=== PATIENT | female | born 1965 | race Caucasian/White ===

== ENCOUNTER → 2024-05-31 | Outpatient (BNVA) | payer MEDICARE, MEDICAID, SELFPAY | END | disposition home or self-care (01) | PROVIDERS: PCP Nurse Practitioner Family; Referring Provider Nurse Practitioner Family; Visit Provider Nurse Practitioner Family | DX: M25.552 Pain in left hip (principal); Z23 Encounter for immunization; R73.03 Prediabetes; E55.9 Vitamin D deficiency, unspecified; E78.01 Familial hypercholesterolemia; E03.9 Hypothyroidism, unspecified | CPT/HCPCS: 90471; 90686; 99214 ==

== ENCOUNTER → 2024-06-10 | Outpatient (BNVA) | payer MEDICARE, MEDICAID, SELFPAY | END | disposition home or self-care (01) | PROVIDERS: PCP Nurse Practitioner Family; Referring Provider Nurse Practitioner Family; Visit Provider Nurse Practitioner Family | DX: R73.03 Prediabetes (principal); E78.01 Familial hypercholesterolemia; E03.9 Hypothyroidism, unspecified; Z71.2 Person consulting for explanation of examination or test findings | CPT/HCPCS: 99212; G0463 ==

== ENCOUNTER → 2024-06-20 | Outpatient (BNVA) | payer MEDICARE, MEDICAID, SELFPAY | END | disposition home or self-care (01) | PROVIDERS: PCP Nurse Practitioner Family; Referring Provider Nurse Practitioner Family; Visit Provider Nurse Practitioner Family | DX: Z12.31 Encounter for screening mammogram for malignant neoplasm of breast (principal) | CPT/HCPCS: 99212; G0463 ==

== ENCOUNTER → 2024-07-24 | Outpatient (CLI) | payer MEDICARE, MEDICAID, SELFPAY ==
--- NOTE | 2024-07-24 09:00 | XR_ITS ---
Examination: Screening digital mammography, bilateral Computer aided detection 3-D breast Tomosynthesis, bilateral Date and time of exam: July 24, 2024 0855 hours Compared to mammograms dating to December 20, 2010 Indication: Screening Technique: Nonmagnified MLO, CC views of the breasts to been obtained, reconstructed from 3-D Tomosynthesis images. R2 computer aided detection program utilized for evaluation of suspicious masses and/or abnormal calcifications. 3-D Tomosynthesis images obtained. Findings: Scattered areas of fibroglandular density. Benign calcifications. No interval suspicious masses Impression: BI-RADS category II: Benign Findings. Recommend 1 year follow-up mammogram.
== END | disposition home or self-care (01) ==
LOC: CDIM 08:45
PROVIDERS: Referring Provider Nurse Practitioner Family; Visit Provider Nurse Practitioner Family
DX: Z12.31 Encounter for screening mammogram for malignant neoplasm of breast (principal); R92.323 Mammographic fibroglandular density, bilateral breasts; R92.1 Mammographic calcification found on diagnostic imaging of breast
CPT/HCPCS: 77063; 77067

== ENCOUNTER 2024-07-30 08:03 | Outpatient (AMB) | payer MEDICARE, MEDICAID, SELFPAY ==
[2024-07-30 08:14] VITALS: BP 102/68; PULSE 68; RESP 19; TEMP 36.3; O2SAT 97; BMI 37.4
--- NOTE | 2024-07-30 08:14 | ORTHONT_ITS ---
Vital signs 07/30/24 08:14 Height 1.41 m Height Method Stated Weight 74.389 kg Weight Measurement Method Estimated by Patient BMI 37.4 BP 102/68 Blood Pressure Source Automatic Cuff Blood Pressure Location Left Upper Arm Position Sitting Respiration 19 Pulse 68 Pulse Source Monitor Temp 97.3 F Temp Source Temporal Artery Scan Pulse Oximetry (%) 97 Oxygen Delivery Method Room Air Med/Allergies Allergies & Medications Allergies No Known Allergies Allergy (Verified 07/30/24 08:15) Medication Reconciliation cholecalciferol (vitamin D3) 25 mcg (1,000 unit) capsule 25 mcg PO QDAY 04/09/24 [History Confirmed 07/30/24] ezetimibe 10 mg tablet 10 mg PO QDAY 90 days #90 tabs 06/10/24 [Rx Confirmed 07/30/24] levothyroxine 100 mcg tablet 100 mcg PO QDAY #90 tabs 06/10/24 [Rx Confirmed 07/30/24] rosuvastatin 10 mg tablet 10 mg PO QDAY #90 tabs 06/10/24 [Rx Confirmed 07/30/24] Exam Exam Patient is in no acute distress and is cooperative with the examination today. Breathing is nonlabored. In no respiratory distress. Patient has no paraspinal tenderness. Spinal deformity cannot be appreciated. The gait of the patient is nonantalgic Bilateral extremities were evaluated and demonstrates sensation intact to light touch. Palpable pedal pulses are present. No significant edema is present. Bilateral knees were examined and the patient has full strength and range of motion.. The right hip was examined. Patient was able to flex to 90 degrees, adduct to 30 degrees, abduct to 40 degrees, internally rotate to 20 degrees, and externally rotate to 20 degrees. Patient has a negative logroll. Stinchfield is negative. The patient is nontender diffusely to touch. The left hip was examined. Patient was able to flex to 90 degrees, adduct to 30 degrees, abduct to 40 degrees, internally rotate to 10 degrees, and externally rotate to 20 degrees. The stinchfield is positive as welll as the logroll. I reviewed her x-rays and CT scan. The CT scan demonstrates a shallow acetabulum with almost no lateral bone coverage. The femoral head has significant collapse as well. Assessment and Plan Problem List (1) Acquired dysplasia of left hip: Status: Acute Plan: Patient is a 59-year-old female with severe left hip dysplasia Down syndrome with left hip pain and degenerative joint disease. I discussed with her that some of her pain appears to be from the back as she is pointing to it as well as her hip. I personally we will try 1 hip injection to see how much of the pain is coming from the hip versus the fact. At some point, I hip replacement I think is a reasonable option. She is already established with a another orthopedic surgeon in the tertiary referral center. I would recommend that she see him. W I discussed with her that the surgery would require augments and may be a bigger procedure than what should be done at a [facility] later [facility]. Office Procedures GNS Level of Care Nursing/Assessment Patient Status: Initial/New Patient Nursing Assessment/Reassesment: Medication Reconciliation, Update PMH in EMR and Vital Signs Coordination of Care: Complex Care and Chronic Disease 1-5, Education Complex Pt/Fam, Consent,records obtained, informed consent, 1 Ins Authorization, Lab and Imaging orders, Results/Orders obtained and Staff clarify orders New Patient Charge New Patient Point Assignment: 1124 New Patient Point Charge: GAS MAKER Level 4 (7491-9012) MA Intake Visit Data Collection New Patient or Established: New Patient (never been to [facility]) Reason for Visit:: LEFT HIP PAIN Seen by Clinical Staff ONLY (RN/MA): No Felt 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 She also reports a lot of pain in the back. She is previously scheduled for a total hip replacement with the prior surgeon left this practice. She does have hip dysplasia and was told it was a complex reconstruction. The communication is primarily with her caregiver with her Pain Pain level (0-10): 8 Pain duration: CONSTANT Pain location: inside (medial), outside (lateral) and other (specify) (HIP) Pain quality: sharp Pain timing: night, increases with activity and stairs Associated signs & symptoms: weakness Ambulatory data Ambulatory device: other (specify) (WHEEL CHAIR) Treatments Improvement with previous injections: No Improvement with PT: No Improvement with NSAIDS: no Review of Systems Review of Systems: All systems negative unless otherwise noted in HPI.
== END 2024-07-30 08:40 | disposition home or self-care (01) ==
LOC: HODSRG 08:03
PROVIDERS: PCP Nurse Practitioner Family; Referring Provider Nurse Practitioner Family; Supervising Provider Orthopaedic Surgery Adult Reconstructive Orthopaedic Surgery; Visit Provider Orthopaedic Surgery Adult Reconstructive Orthopaedic Surgery
DX: M25.852 Other specified joint disorders, left hip (principal); Q90.9 Down syndrome, unspecified; M25.552 Pain in left hip; M19.90 Unspecified osteoarthritis, unspecified site
CPT/HCPCS: 99204; G0463

== ENCOUNTER → 2024-09-20 | Outpatient (BNVA) | payer MEDICARE, MEDICAID, SELFPAY | END | disposition home or self-care (01) | PROVIDERS: PCP Nurse Practitioner Family; Referring Provider Nurse Practitioner Family; Visit Provider Nurse Practitioner Family | DX: Z71.2 Person consulting for explanation of examination or test findings (principal); R73.03 Prediabetes; E78.01 Familial hypercholesterolemia; E03.9 Hypothyroidism, unspecified | CPT/HCPCS: 99212; G0463 ==

== ENCOUNTER → 2024-10-15 | Outpatient (BNVA) | payer MEDICARE, MEDICAID, SELFPAY | END | disposition home or self-care (01) | PROVIDERS: PCP Nurse Practitioner Family; Referring Provider Nurse Practitioner Family; Visit Provider Nurse Practitioner Family | DX: Z00.01 Encounter for general adult medical examination with abnormal findings (principal); E03.9 Hypothyroidism, unspecified; E66.9 Obesity, unspecified; Z68.35 Body mass index [BMI] 35.0-35.9, adult; R73.03 Prediabetes; E55.9 Vitamin D deficiency, unspecified; E78.5 Hyperlipidemia, unspecified; E78.01 Familial hypercholesterolemia | CPT/HCPCS: 93005; 99213 ==

== ENCOUNTER → 2024-10-25 | Outpatient (BNVA) | payer MEDICARE, MEDICAID, SELFPAY | END | disposition home or self-care (01) | PROVIDERS: PCP Nurse Practitioner Family; Referring Provider Nurse Practitioner Family; Visit Provider Nurse Practitioner Family | DX: Z76.89 Persons encountering health services in other specified circumstances (principal) ==

== ENCOUNTER → 2024-12-23 | Outpatient (CLI) | payer MEDICARE, MEDICAID, SELFPAY ==
--- NOTE | 2024-12-23 | XR_ITS ---
Examination: AP bilateral knees single view TECHNIQUE: AP standing bilateral knees single view Date and time: December 23, 2024 1202 hours INDICATIONS: Bilateral knee pain left knee swelling for months FINDINGS: Severe osteopenia Severe narrowing lateral joint spaces No fractures IMPRESSION: Severe narrowing lateral joint spaces
== END | disposition home or self-care (01) ==
PROVIDERS: PCP Nurse Practitioner Family; Referring Provider Nurse Practitioner Family; Visit Provider Nurse Practitioner Family
DX: M85.862 Other specified disorders of bone density and structure, left lower leg (principal); M85.861 Other specified disorders of bone density and structure, right lower leg
CPT/HCPCS: 73565

== ENCOUNTER → 2024-12-23 | Outpatient (BNVA) | payer MEDICARE, MEDICAID, SELFPAY | END | disposition home or self-care (01) | PROVIDERS: PCP Nurse Practitioner Family; Referring Provider Nurse Practitioner Family; Visit Provider Nurse Practitioner Family | DX: Z00.01 Encounter for general adult medical examination with abnormal findings (principal); E78.5 Hyperlipidemia, unspecified; E03.9 Hypothyroidism, unspecified; E66.9 Obesity, unspecified; E55.9 Vitamin D deficiency, unspecified; R73.03 Prediabetes | CPT/HCPCS: 99213 ==

== ENCOUNTER → 2025-01-01 | Outpatient (BNVA) | payer MEDICARE, MEDICAID, SELFPAY | END | disposition home or self-care (01) | PROVIDERS: PCP Nurse Practitioner Family; Referring Provider Nurse Practitioner Family; Visit Provider Nurse Practitioner Family | DX: M17.0 Bilateral primary osteoarthritis of knee (principal); Z12.11 Encounter for screening for malignant neoplasm of colon; Z23 Encounter for immunization; E03.9 Hypothyroidism, unspecified | CPT/HCPCS: 90471; 90677; 90715; 99215; G0009 ==

== ENCOUNTER → 2025-01-08 | Outpatient (BNVA) | payer MEDICARE, MEDICAID, SELFPAY | END | disposition home or self-care (01) | PROVIDERS: PCP Nurse Practitioner Family; Referring Provider Nurse Practitioner Family; Visit Provider Nurse Practitioner Family | DX: Z00.01 Encounter for general adult medical examination with abnormal findings (principal); E03.9 Hypothyroidism, unspecified; E66.9 Obesity, unspecified; R73.03 Prediabetes; E55.9 Vitamin D deficiency, unspecified; E78.01 Familial hypercholesterolemia; Z71.85 Encounter for immunization safety counseling; Q90.9 Down syndrome, unspecified; Z68.38 Body mass index [BMI] 38.0-38.9, adult | CPT/HCPCS: 93005; 99214 ==

== ENCOUNTER → 2025-01-22 | Outpatient (BNVA) | payer MEDICARE, MEDICAID, SELFPAY | END | disposition home or self-care (01) | PROVIDERS: PCP Nurse Practitioner Family; Referring Provider Nurse Practitioner Family; Visit Provider Nurse Practitioner Family | DX: Z71.2 Person consulting for explanation of examination or test findings (principal); E03.9 Hypothyroidism, unspecified | CPT/HCPCS: 99212; 99213; G0463 ==

== ENCOUNTER → 2025-02-26 | Outpatient (BNVA) | payer MEDICARE, MEDICAID, SELFPAY | END | disposition home or self-care (01) | PROVIDERS: PCP Nurse Practitioner Family; Referring Provider Nurse Practitioner Family; Visit Provider Nurse Practitioner Family | DX: E03.9 Hypothyroidism, unspecified (principal); M17.0 Bilateral primary osteoarthritis of knee | CPT/HCPCS: 99214 ==

== ENCOUNTER → 2025-03-03 | Outpatient (BNVA) | payer MEDICARE, MEDICAID, SELFPAY | END | disposition home or self-care (01) | PROVIDERS: PCP Nurse Practitioner Family; Referring Provider Nurse Practitioner Family; Visit Provider Nurse Practitioner Family | DX: Z71.2 Person consulting for explanation of examination or test findings (principal); E03.9 Hypothyroidism, unspecified | CPT/HCPCS: 99212; G0463 ==

== ENCOUNTER 2025-03-27 10:10 | Outpatient (AMB) | payer MEDICARE, MEDICAID, SELFPAY ==
--- NOTE | 2025-03-27 10:33 | PD.ORTHCLVIS ---
Vital signs 03/27/25 10:35 Height 1.45 m Height Method Measured Weight 73.936 kg Weight Measurement Method Standing Scale BMI 35.2 BP 119/84 Blood Pressure Source Automatic Cuff Blood Pressure Location Left Upper Arm Position Sitting Respiration 16 Pulse 76 Pulse Source Monitor Temp 97.4 F Temp Source Temporal Artery Scan Pulse Oximetry (%) 94 L Oxygen Delivery Method Room Air Med/Allergies Allergies & Medications Allergies No Known Allergies Allergy (Verified 03/27/25 10:36) Medication Reconciliation aspirin 81 mg tablet,delayed release (Adult Aspirin Regimen) 81 mg PO QDAY #90 tabs 09/20/24 [Rx Confirmed 03/27/25] cholecalciferol (vitamin D3) 25 mcg (1,000 unit) capsule 25 mcg PO QDAY #90 caps 09/20/24 [Rx Confirmed 03/27/25] rosuvastatin 10 mg tablet 10 mg PO QDAY #90 tabs 09/20/24 [Rx Confirmed 03/27/25] ezetimibe 10 mg tablet 10 mg PO QDAY 12/23/24 [History Confirmed 03/27/25] meloxicam 7.5 mg tablet 7.5 mg PO QDAY #30 tabs 02/26/25 [Rx Confirmed 03/27/25] levothyroxine 50 mcg tablet 50 mcg PO QDAY #60 tabs 03/03/25 [Rx Confirmed 03/27/25] Exam Exam Patient is in no acute distress and is cooperative with the examination today. Breathing is nonlabored. In no respiratory distress. Patient has no paraspinal tenderness. Spinal deformity cannot be appreciated. The gait of the patient is nonantalgic Bilateral extremities were evaluated and demonstrates sensation intact to light touch. Palpable pedal pulses are present. No significant edema is present. Bilateral knees were examined and the patient has full strength and range of motion.. The right hip was examined. Patient was able to flex to 90 degrees, adduct to 30 degrees, abduct to 40 degrees, internally rotate to 20 degrees, and externally rotate to 20 degrees. Patient has a negative logroll. Stinchfield is negative. The patient is nontender diffusely to touch. The left hip was examined. Patient was able to flex to 90 degrees, adduct to 30 degrees, abduct to 40 degrees, internally rotate to 10 degrees, and externally rotate to 20 degrees. The stinchfield is positive as welll as the logroll. Bilateral knee x-rays demonstrate significant joint space narrowing laterally Assessment and Plan Problem List (1) Acquired dysplasia of left hip: Status: Acute Plan: Patient is a 59-year-old female with severe left hip dysplasia Down syndrome with left hip pain and degenerative joint disease. She also has bilateral knee arthritis is doing well with from her hip surgery. She would like bilateral knee injections today Recommend knee cortisone injection as patient would like to proceed with conservative treatment at this time. The risks and benefits of the procedure were reviewed with the patient and patient gave verbal consent to continue with the procedure. Procedure: performed by Dr. Mendoza Using sterile technique the left knee was thoroughly prepped with alcohol, and approximately 1 cc of Depo-Medrol 80mg/mL and 4 cc of 0.2% ropivacaine was injected without resistance into the medial tibial femoral joint space. The patient tolerated the procedure. Recommend knee cortisone injection as patient would like to proceed with conservative treatment at this time. The risks and benefits of the procedure were reviewed with the patient and patient gave verbal consent to continue with the procedure. Procedure: performed by Dr. Mendoza Using sterile technique the Right knee was thoroughly prepped with alcohol, and approximately 1 cc of Depo-Medrol 80mg/mL and 4 cc of 0.2% ropivacaine was injected without resistance into the medial tibial femoral joint space. The patient tolerated the procedure. Office Procedures GNS Level of Care Nursing/Assessment Patient Status: Initial/New Patient Nursing Assessment/Reassesment: Medication Reconciliation, Update PMH in EMR and Vital Signs Coordination of Care: Complex Care and Chronic Disease 1-5, Education Complex Pt/Fam, Consent,records obtained, informed consent, Results/Orders obtained and Staff clarify orders New Patient Charge New Patient Point Assignment: 1094 New Patient Point Charge: RN ANESTHESIOLOGY Level 3 ([id number]) Surgical Proc/IM SQ injection Minor Surgical Procedure: Yes (LEFT KNEE INJECTION) Medication Given Medication Given Medication Given: Yes Documented Dose Given: 1 Route: Infiitration Medication Given Medication Given Medication Given: Yes Documented Dose Given: 4 Route: Infiitration Office Meds methylprednisolone acetate 80 mg/mL suspension for injection Performing Provider: Mo Mendoza MD Performing Location: [facility] Administered by: Mo Mendoza MD on 03/27/25 10:59 Dose Route Admin Location Dispensed Lot Number Expiration Date Package NDC NDC Backside Grinder 80 mg intra-articular 1 mL [id number] 06/08/26 [address]-4 [id number] [employer] ropivacaine (PF) 2 mg/mL (0.2 %) injection solution Performing Provider: Mo Mendoza MD Performing Location: [facility] Administered by: Mo Mendoza MD on 03/27/25 10:59 Dose Route Admin Location Dispensed Lot Number Expiration Date Package [facility] [place] Backside Grinder 20 mL Infiltration 20 mL [id number] 08/08/27 71039-691-05 [id number] [facility] Intake Visit Data Collection New Patient or Established: New Patient (never been to [facility]) Reason for Visit:: BILATERAL KNEE PAIN Seen by Clinical Staff ONLY (RN/MA): No Programming Development 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 She also reports a lot of pain in the back. She reports that she had a left total hip replacement and is doing well. She cannot get off the walker and has bilateral knee pains. She would like to get cortisone injections of her knees today. She had advanced arthritis of both knees Personal History Occupation: DISABLED Red flag PMH: none BMI Counceling provided: Yes Pain Pain level (0-10): 6 Pain duration: CONSTANT Pain location: anterior Pain quality: aching Pain timing: increases with activity and stairs Associated signs & symptoms: weakness Ambulatory data Ambulatory device: walker Treatments Number of previous injections: 0 Improvement with previous injections: No Number of Physical Therapy sessions: 0 Improvement with PT: No Improvement with NSAIDS: yes (MELOXICAM ) Review of Systems Review of Systems: All systems negative unless otherwise noted in HPI.
[2025-03-27 10:35] VITALS: BP 119/84; PULSE 76; RESP 16; TEMP 36.3; O2SAT 94; BMI 35.2
== END 2025-03-27 10:55 | disposition home or self-care (01) ==
LOC: HODSRG 10:10
PROVIDERS: PCP Nurse Practitioner Family; Referring Provider Orthopaedic Surgery Adult Reconstructive Orthopaedic Surgery; Supervising Provider Orthopaedic Surgery Adult Reconstructive Orthopaedic Surgery; Visit Provider Orthopaedic Surgery Adult Reconstructive Orthopaedic Surgery
DX: M25.852 Other specified joint disorders, left hip (principal); Q90.9 Down syndrome, unspecified; M25.552 Pain in left hip; M17.0 Bilateral primary osteoarthritis of knee; M25.562 Pain in left knee; M25.561 Pain in right knee; Z96.642 Presence of left artificial hip joint
CPT/HCPCS: 20610; 99203; J1010; J2795; G0463

== ENCOUNTER → 2025-03-31 | Outpatient (BNVA) | payer MEDICARE, MEDICAID, SELFPAY | END | disposition home or self-care (01) | PROVIDERS: PCP Nurse Practitioner Family; Referring Provider Nurse Practitioner Family; Visit Provider Nurse Practitioner Family | DX: E03.9 Hypothyroidism, unspecified (principal); E78.01 Familial hypercholesterolemia; M17.0 Bilateral primary osteoarthritis of knee | CPT/HCPCS: 99212; G0463 ==

== ENCOUNTER → 2025-05-07 | Outpatient (BNVA) | payer MEDICARE, MEDICAID, SELFPAY | END | disposition home or self-care (01) | PROVIDERS: PCP Nurse Practitioner Family; Referring Provider Nurse Practitioner Family; Visit Provider Nurse Practitioner Family | DX: M25.561 Pain in right knee (principal); M25.562 Pain in left knee; E78.019 Familial hypercholesterolemia, unspecified; Z23 Encounter for immunization | CPT/HCPCS: 90471; 90686; 99214 ==

== ENCOUNTER → 2025-05-21 | Outpatient (BNVA) | payer MEDICARE, MEDICAID, SELFPAY | END | disposition home or self-care (01) | PROVIDERS: PCP Nurse Practitioner Family; Referring Provider Nurse Practitioner Family; Visit Provider Nurse Practitioner Family | DX: Z71.2 Person consulting for explanation of examination or test findings (principal); E03.9 Hypothyroidism, unspecified | CPT/HCPCS: 99213 ==

== ENCOUNTER 2025-06-27 09:54 | Outpatient (AMB) | payer MEDICARE, MEDICAID, SELFPAY ==
--- NOTE | 2025-06-27 10:09 | ORTHONT_ITS ---
Vital signs 06/27/25 10:17 Height 1.45 m Height Method Measured Weight 71.838 kg Weight Measurement Method Standing Scale BMI 34.1 BP 108/70 Blood Pressure Source Automatic Cuff Blood Pressure Location Left Upper Arm Position Sitting Respiration 18 Pulse 75 Pulse Source Monitor Temp 96.5 F L Temp Source Temporal Artery Scan Pulse Oximetry (%) 98 Oxygen Delivery Method Room Air Med/Allergies Allergies & Medications Allergies No Known Allergies Allergy (Verified 06/27/25 10:18) Medication Reconciliation cholecalciferol (vitamin D3) 25 mcg (1,000 unit) capsule 25 mcg PO QDAY #90 caps 09/20/24 [Rx Confirmed 06/27/25] aspirin 81 mg tablet,delayed release (Adult Aspirin Regimen) 81 mg PO QDAY #90 tabs 03/31/25 [Rx Confirmed 06/27/25] ezetimibe 10 mg tablet 10 mg PO QDAY #90 tabs 03/31/25 [Rx Confirmed 06/27/25] meloxicam 7.5 mg tablet 7.5 mg PO QDAY #90 tabs 05/07/25 [Rx Confirmed 06/27/25] simvastatin 20 mg tablet 20 mg PO QDAY #90 tabs 05/07/25 [Rx Confirmed 06/27/25] levothyroxine 125 mcg tablet 62.5 mcg (1/2 x 125 mcg) PO QDAY 60 days #30 tabs 05/21/25 [Rx Confirmed 06/27/25] Exam Exam Patient is in no acute distress and is cooperative with the examination today. Breathing is nonlabored. In no respiratory distress. Patient has no paraspinal tenderness. Spinal deformity cannot be appreciated. The gait of the patient is nonantalgic Bilateral extremities were evaluated and demonstrates sensation intact to light touch. Palpable pedal pulses are present. No significant edema is present. Bilateral knees were examined and the patient has full strength and range of motion.. The right hip was examined. Patient was able to flex to 90 degrees, adduct to 30 degrees, abduct to 40 degrees, internally rotate to 20 degrees, and externally rotate to 20 degrees. Patient has a negative logroll. Stinchfield is negative. The patient is nontender diffusely to touch. The left hip was examined. Patient was able to flex to 90 degrees, adduct to 30 degrees, abduct to 40 degrees, internally rotate to 10 degrees, and externally rotate to 20 degrees. The stinchfield is positive as welll as the logroll. Bilateral knee x-rays demonstrate significant joint space narrowing laterally Assessment and Plan Problem List (1) Acquired dysplasia of left hip: Status: Acute Plan: Patient is a 59-year-old female with severe left hip dysplasia Down syndrome with left hip pain and degenerative joint disease. She also has bilateral knee arthritis is doing well with from her hip surgery. She would like a left knee injection today Recommend knee cortisone injection as patient would like to proceed with conservative treatment at this time. The risks and benefits of the procedure were reviewed with the patient and patient gave verbal consent to continue with the procedure. Procedure: performed by Dr. Mendoza Using sterile technique the left knee was thoroughly prepped with alcohol, and approximately 1 cc of Depo-Medrol 80mg/mL and 4 cc of 0.2% ropivacaine was injected without resistance into the medial tibial femoral joint space. The patient tolerated the procedure. Office Procedures GNS Level of Care Nursing/Assessment Patient Status: Established Patient Nursing Assessment/Reassesment: Medication Reconciliation, Update PMH in EMR and Vital Signs Coordination of Care: Complex Care and Chronic Disease 1-5, Education Complex Pt/Fam, Consent,records obtained, informed consent, Results/Orders obtained and Staff clarify orders Established Patient Charge Established Patient Point Assignment: 95 Established Patient Point Charge: EP Level 3 (80-115) Surgical Proc/IM SQ injection Minor Surgical Procedure: Yes (KNEE INJECTION) Medication Given Medication Given Medication Given: Yes Documented Dose Given: 1 Route: Infiitration Medication Given Medication Given Medication Given: Yes Documented Dose Given: 4 Route: Infiitration Office Meds methylprednisolone acetate 80 mg/mL suspension for injection Performing Provider: Mo Mendoza MD Performing Location: [facility] Administered by: Mo Mendoza MD on 06/27/25 10:41 Dose Route Admin Location Dispensed Lot Number Expiration Date Pack age [facility] [employer] Generalist 80 mg intra-articular KNEE 1 mL [id number] 03/09/27 [address]-5 [id number] [employer] ropivacaine (PF) 2 mg/mL (0.2 %) injection solution Performing Provider: Mo Mendoza MD Performing Location: [facility] Administered by: Mo Mendoza MD on 06/27/25 10:41 Dose Route Admin Location Dispensed Lot Number Expiration Date Pack age [facility] Senior [employer] Generalist 20 mL Infiltration KNEE 20 mL [id number] 12/07/26 0181-9646-69 [id number] [place]ЛЬГ[place]IN[place] Intake Visit Data Collection New Patient or Established: Established Patient (seen at [facility] within 3 years) Reason for Visit:: LEFT KNEE INJECTION Seen by Clinical Staff ONLY (RN/MA): No Cyber Systems Operations Specialist Required: No PCP or OBGYN visit in last 3 months: Yes Hx Now: No Do You Feel Safe at Home: Yes Authorities Contacted: N/A Questionairres Past Medical History Past Medical History Have you ever been diagnosed with any of the following: Subjective Visit Visit for: new patient and knee Immunization / Flu Flu Vaccine in the Last 12 Months: Yes Flu Vaccine Exclusion Criteria: Already Received History of Present Illness Chief complaint: BILATERAL KNEE PAIN Date of injury / onset of symptoms: 1 YEAR AGO Patient is a pleasant 60-year-old female with Down syndrome with left hip pain. She also reports a lot of pain in the back. She reports that she had a left total hip replacement and is doing well. She cannot get off the walker and has bilateral knee pains. She would like a cortisone injection of the left knee today. She is doing very well Personal History Occupation: DISABLED Red flag PMH: none BMI Counceling provided: Yes Pain Pain level (0-10): 6 Pain duration: CONSTANT Pain location: anterior Pain quality: aching Pain timing: increases with activity and stairs Associated signs & symptoms: weakness Ambulatory data Ambulatory device: walker Treatments Number of previous injections: 0 Improvement with previous injections: No Number of Physical Therapy sessions: 0 Improvement with PT: No Improvement with NSAIDS: yes (MELOXICAM ) Review of Systems Review of Systems: All systems negative unless otherwise noted in HPI.
[2025-06-27 10:17] VITALS: BP 108/70; PULSE 75; RESP 18; TEMP 35.8; O2SAT 98; BMI 34.1
== END 2025-06-27 10:20 | disposition home or self-care (01) ==
LOC: HODSRG 09:54
PROVIDERS: PCP Nurse Practitioner Family; Referring Provider Nurse Practitioner Family; Supervising Provider Orthopaedic Surgery Adult Reconstructive Orthopaedic Surgery; Visit Provider Orthopaedic Surgery Adult Reconstructive Orthopaedic Surgery
DX: M16.12 Unilateral primary osteoarthritis, left hip (principal); Q65.89 Other specified congenital deformities of hip; M17.0 Bilateral primary osteoarthritis of knee; Q90.9 Down syndrome, unspecified; Z96.642 Presence of left artificial hip joint
CPT/HCPCS: 20610; 99213; J1010; J2795; G0463

== ENCOUNTER → 2025-07-08 | Outpatient (BNVA) | payer MEDICARE, MEDICAID, SELFPAY | END | disposition home or self-care (01) | PROVIDERS: PCP Nurse Practitioner Family; Referring Provider Nurse Practitioner Family; Visit Provider Nurse Practitioner Family | DX: Z12.31 Encounter for screening mammogram for malignant neoplasm of breast (principal); Z12.11 Encounter for screening for malignant neoplasm of colon | CPT/HCPCS: 99214 ==